=== PATIENT | male | born 1970 | race African-American/Black ===

== ENCOUNTER 2016-11-02 18:55 | Emergency (ER) | payer OTHER ==
[~2016-11-02 18:55] MED LIST: B/P PILL; MEVACOR PO; NOVOLIN 70/30 V10 M1 SUBQ; NOVOLIN 70/30 V10 ML INJ; OMEPRAZOLE20 M2 PO; PRINIVIL20 M1 PO; SUGAR PILL
== END 2016-11-02 20:45 | disposition home or self-care (01) ==
LOC: CED 18:55
DX: Z76.0 Encounter for issue of repeat prescription (principal); E10.9 Type 1 diabetes mellitus without complications
CPT/HCPCS: 82947; 99282

== ENCOUNTER 2016-11-21 20:51 | Inpatient (IN) | payer OTHER ==
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
--- NOTE | ~2016-11-21 | EKG ---
PATIENT: SINGH STEELE UNIT #: [id number] Ventricular Rate: 84 BPM Atrial Rate: 84 BPM P-R Interval: 138 ms QRS Duration: 104 ms Q-T Interval: 412 ms QTC Calculation(Bezet): 486 ms P Almyra: 51 degrees Calculated R Almyra: 4 degrees Calculated T Almyra: 169 degrees Diagnosis Line: Normal sinus rhythm Diagnosis Line: Possible Left atrial enlargement Diagnosis Line: Inferior infarct , possibly acute Diagnosis Line: Anterior infarct , age undetermined Diagnosis Line: T wave abnormality, consider lateral ischemia Diagnosis Line: ACUTE [place] / STEMI Diagnosis Line: Consider right ventricular involvement in acute Diagnosis Line: inferior infarct Diagnosis Line: Abnormal ECG Diagnosis Line: When compared with ECG of 29-FEB-2012 16:21, Diagnosis Line: Anterior infarct is now Present Diagnosis Line: Inferior infarct is now Present Diagnosis Line: T wave inversion now evident in Inferior leads Diagnosis Line: T wave inversion now evident in Anterolateral Diagnosis Line: leads Diagnosis Line: Significant changes have occurred Diagnosis Line: Confirmed by JONATHAN NICK MD ([id number]) on Diagnosis Line: 11/23/2016 3:51:05 PM INTERPRETING MD: KARLA
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
[2016-11-21] MEDS ORDERED: COREG6.25 MG PO (22:59)
[2016-11-21] MEDS ORDERED: ASPIRIN81 MG PO (23:00)
[2016-11-21] MEDS ORDERED: LASIX PO (23:00)
[2016-11-21] MEDS ORDERED: LISINOPRIL5 MG PO (23:00)
[2016-11-21] MEDS ORDERED: BRILINTA90 MG PO (23:01)
[2016-11-21] MEDS ORDERED: HUMULIN 70100 UNIT/2 SUBQ (23:02)
[2016-11-21 23:41] LABS: BASOPHIL# 0.1 X10e3 (0-0.3); BASOPHIL% 0.8 % (0-2.5); EOSINOPHIL% 0.4 % (0.0-7.0); HEMATOCRIT 43.7 % (38.0-50.0); HEMOGLOBIN 14.7 gm/dL (13.0-16.0); LYMPHOCYTE# 1.8 X10e3 (1.0-3.5); LYMPHOCYTE% 16.7 % (17.0-45.0); MEAN CELL VOLUME 84.6 FL (83-96); MEAN CORPUSCULAR HEMOGLOBIN 28.4 PG (28-34); MEAN CORPUSCULAR HGB CONC 33.6 g/dL (30-36); MEAN PLATELET VOLUME 10.2 FL (6.5-11.5); MONOCYTE% 9.6 % (3.0-12.0); NEUTROPHIL# 7.9 X10e3 (1.5-7.1); NEUTROPHIL% 72.5 % (40-75); PLATELET COUNT 209 X10e3 (140-420); RED BLOOD COUNT 5.16 X10e (3.90-5.60); RED CELL DISTRIBUTION WIDTH 15.5 % (11.0-15.5); WHITE BLOOD COUNT 10.8 X10e3 (4.0-10.5)
[2016-11-21 23:47] LABS: DIFF IND NO
[2016-11-22 00:05] LABS: CALCIUM SERUM 9.3 mg/dL (8.4-10.2); CREATININE SERUM 1.1 mg/dL (0.6-1.4); GLOM FILT RATE Estimated 94.1 mL/min (>60); POTASSIUM 3.6 mmol/L (3.5-5.1)
[2016-11-22 00:06] LABS: POC - TROPONIN 0.31 ng/mL (<=0.05)
[2016-11-22 03:56] LABS: POC - CKMB 5.4 ng/mL (0.0-7.9); POC - TROPONIN 0.26 ng/mL (<=0.05)
[2016-11-22 07:25] LABS: CALCIUM SERUM 9.2 mg/dL (8.4-10.2); GLOM FILT RATE Estimated 105.6 mL/min (>60); MAGNESIUM 1.7 mg/dL (1.6-3.0); POTASSIUM 3.6 mmol/L (3.5-5.1)
[2016-11-22 07:44] LABS: %MB 1.6 % (0.0-4.0)
[2016-11-22 08:11] LABS: CHOLESTEROL 219 mg/dL (0-200); HDL CHOLESTEROL 33 mg/dL (29-75); LDL/HDL RATIO 4 RATIO (0-4); TRIGLYCERIDES 191 mg/dL (10-160)
[2016-11-22 08:12] LABS: LDL CHOLESTEROL 148 mg/dL ([, -130])
== END 2016-11-22 09:05 | disposition home or self-care (01) | DRG 293 ==
LOC: CED 20:51 → CEDOF 11-22 01:10 → CED 11-22 02:27 → CEDOF 11-22 09:05
PROVIDERS: Emergency Medicine; Internal Medicine Cardiovascular Disease
DX: I11.0 Hypertensive heart disease with heart failure (principal); J44.9 Chronic obstructive pulmonary disease, unspecified; I50.22 Chronic systolic (congestive) heart failure; I25.5 Ischemic cardiomyopathy; F17.210 Nicotine dependence, cigarettes, uncomplicated; E11.9 Type 2 diabetes mellitus without complications; E78.5 Hyperlipidemia, unspecified; I25.10 Atherosclerotic heart disease of native coronary artery without angina pectoris; Z95.5 Presence of coronary angioplasty implant and graft; F10.21 Alcohol dependence, in remission; I25.2 Old myocardial infarction; F12.10 Cannabis abuse, uncomplicated
CPT/HCPCS: 36415; 70360; 71020; 80048; 80061; 82550; 82553; 83735; 84484; 85025; 93005; 99291